=== PATIENT | female | born 1940 | race Caucasian/White ===

== ENCOUNTER 2018-05-03 13:12 | Inpatient (IN) | payer MEDICARE ==
[~2018-05-03] VITALS: Ht 160 cm; Wt 49.9 kg
[2018-05-03 13:30] VITALS: BP 104/61
[2018-05-03] MEDS ORDERED: CALCIUM OYS SH1 EACH PO (13:44)
[2018-05-03] MEDS ORDERED: CENTRUM SILVER1 EAC2 PO (13:44)
[2018-05-03] MEDS ORDERED: LOVASTATIN 20 M20 MG PO (13:44)
[2018-05-03] MEDS ORDERED: POTASSIUM20 PO (13:45)
[2018-05-03] MEDS ORDERED: ELIQUIS2.5 MG PO (13:45)
[2018-05-03] MEDS ORDERED: B12INJ IM (13:46)
[2018-05-03] MEDS ORDERED: PROLIA60 MG/1 ML IM (13:47)
[2018-05-03 16:03] VITALS: BP 106/49
[2018-05-03 19:15] VITALS: BP 101/53
[2018-05-04] VITALS (19 sets, daily range): BP systolic 101–125; BP diastolic 50–70
[2018-05-04 04:47] LABS: HEMATOCRIT 32.2 % (37.0-47.0); HEMOGLOBIN 10.7 gm/dL (12.0-15.0); MCH 32.2 pg (26.0-34.0); MCHC 33.3 g/dL (28.0-37.0); MCV 96.7 fL (80.0-100.0); MPV 7.6 fl. (7.2-11.1); NUCLEATED RBCS 0 /100WBC; PLATELET COUNT* 183 thou/uL (150-400); RBC 3.33 mil/uL (4.20-5.00); WBC 4.4 thou/uL (4.0-11.0)
[2018-05-04 04:55] LABS: CHOLESTEROL 148 mg/dL (<200); HDL CHOLESTEROL 66 mg/dL (>40); LDL CHOLESTEROL 65 mg/dL (<100); TC:HDL 2.2 Ratio (Not establshd); TRIGLYCERIDE 85 mg/dL (<150); VLDL 17 mg/dL (<40)
[2018-05-04 04:57] LABS: SERUM ASSESSMENT CLEAR
[2018-05-04 06:15] LABS: ABSOLUTE EOSINOPHILS 0.4 thou/uL (0.0-0.7); ABSOLUTE LYMPHOCYTES 1.5 thou/uL (0.8-5.3); ABSOLUTE MONOCYTES 0.4 thou/uL (0.0-1.2); ABSOLUTE NEUTROPHILS 2.2 thou/uL (1.6-8.1); PLATELET ESTIMATE ADEQUATE
[2018-05-04 06:16] LABS: ANISOCYTOSIS 1+; POIKILOCYTOSIS 1+
[2018-05-04 09:38] LABS: CALCIUM 9.2 mg/dL (8.5-10.1); CREATININE 2.2 mg/dL (0.6-1.3); POTASSIUM 4.3 mmol/L (3.5-5.1)
[2018-05-04 09:43] LABS: ALBUMIN 2.7 g/dL (3.4-5.0); TOTAL BILIRUBIN 0.4 mg/dL (<0.1-1.0); TOTAL PROTEIN 6.2 g/dL (6.4-8.2)
--- NOTE | 2018-05-04 17:50 | EKG ---
[place] [address] ELECTROCARDIOGRAM REPORT Name: GLADYS TILLMAN Room: [address] ADM IN M.R.#: [id number] Admission: 05/03/18 Attend Phys: Alva Cheung MD Discharge: Date of : 38 Report #: [id number] THIS REPORT FOR: //name// [facility] Test Date: 2018-05-04 Test Time: 12:45:37 Pat Name: GLADYS TILLMAN Department: Room: [address] Gender: F Griddle Attendant: : 1940 Requested By: Henry Santiago Order Number: [id number] Lauren MD: Shan Mckee Measurements Intervals [place] Rate: 89 P: 76 [place]: 188 QRS: 57 QRSD: 75 T: 77 QT: 376 QTc: 458 Interpretive Statements Sinus rhythm Low voltage, precordial leads No previous ECG available for comparison Electronically Signed On 05-04-2018 17:50:32 FORK OPERATOR by Shan Mckee [email or web address] <ELECTRONICALLY SIGNED> By: Shan Mckee MD, [facility] 05/04/18 1750 1245 1245 Shan Mckee MD, FACC /EPI
[2018-05-05] VITALS (7 sets, daily range): BP systolic 110–128; BP diastolic 54–63
[2018-05-05 05:05] LABS: HEMATOCRIT 29.3 % (37.0-47.0); HEMOGLOBIN 10.2 gm/dL (12.0-15.0); MCH 33.6 pg (26.0-34.0); MCHC 34.7 g/dL (28.0-37.0); MCV 96.9 fL (80.0-100.0); MPV 7.4 fl. (7.2-11.1); RBC 3.02 mil/uL (4.20-5.00); RDW-CV 12.9 % (10.5-14.5); WBC 5.8 thou/uL (4.0-11.0)
[2018-05-05 05:25] LABS: ALBUMIN 2.6 g/dL (3.4-5.0); CALCIUM 7.7 mg/dL (8.5-10.1); CREATININE 1.9 mg/dL (0.6-1.3); POTASSIUM 3.6 mmol/L (3.5-5.1); TOTAL BILIRUBIN 0.5 mg/dL (<0.1-1.0); TOTAL PROTEIN 5.7 g/dL (6.4-8.2); TROPONIN-I LEVEL 0.42 ng/mL (<0.06)
[2018-05-05] MEDS ORDERED: NITROGLYCERIN0.4 MG SUBLING (10:20)
[2018-05-05] MEDS ORDERED: BRILINTA90 MG PO (10:21)
[2018-05-05] MEDS ORDERED: ASPIRIN81 M2 PO (10:22)
[2018-05-05 19:12] LABS: GLYCOHEMOGLOBIN (HGB A1C) 6.2 % (4.8-5.6)
--- NOTE | 2018-05-07 15:30 | EKG ---
[place] [address] ELECTROCARDIOGRAM REPORT Name: GLADYS TILLMAN Room: [address] DIS IN M.R.#: [id number] Admission: 05/03/18 Attend Phys: Alva Cheung MD Discharge: 05/05/18 Date of : 38 Report #: [id number] THIS REPORT FOR: //name// [facility] Test Date: 2018-05-05 Test Time: 07:19:56 Pat Name: GLADYS TILLMAN Department: Room: [address] Gender: F Precast Concrete Ironworker: VERONICA : 1940 Requested By: Henry Santiago Order Number: [id number] Reading MD: Shan Mckee Measurements Intervals [place] Rate: 93 P: 77 [place]: 161 QRS: 42 QRSD: 73 T: 75 QT: 374 QTc: 466 Interpretive Statements Sinus rhythm Possible left atrial enlargement Low voltage, extremity and precordial leads Nonspecific T abnrm, anterolateral leads Compared to ECG 05/04/2018 12:45:37 No significant changes Electronically Signed On 05-07-2018 15:30:37 MANAGER GRAPHIC by Shan Mckee [email or web address] <ELECTRONICALLY SIGNED> By: Shan Mckee MD, FACC 05/07/18 1530 0719 0719 Shan Mckee MD, FACC /EPI
--- NOTE | 2018-05-08 14:13 | CARD ---
[address] [address] CARDIAC CATH REPORT Name: GLADYS TILLMAN Room: [address] IN ..#: [id number] Admission: 05/03/18 Attend Phys: Alva Cheung MD Discharge: 05/05/18 Date of : 39 Report #: [id number] THIS REPORT FOR: //name// APPROVED REPORT Study performed: 05/04/2018 10:39:32 Patient Details Patient Status: Room #: 220 The patient is a 77 year-old female Event Personnel Henry Santiago Refinery Superintendent, Jasmina Ibarra RTR Monitor, Laura Todd Scrub, Lizeth Justice RN Horseradish Maker, Eva Wiggins RN Horseradish Maker Procedures Performed Art Access - L femoral artery* Left Heart Cath w/or w/o Coronaries LHC RICARDO Place w/wo Plasty Single RCA Hemostasis w/ Angioseal Indication Non-STEMI Risk Factors Hypercholesterolemia Admission/Lab Medications/Medications given during procedure Aspirin, Platelet Aff. Inhib. Procedure Narrative The patient was brought electively to the Cardiac Catheterization Laboratory and was prepped and draped in a sterile manner. The left femoral was infiltrated with 2% Lidocaine subcutaneous anesthesia. A [place] 6 FR sheath was inserted into the left femoral artery. Coronary angiography was performed using coronary diagnostic catheters. The right coronary system was accessed and visualized with a Diagnostic 6Fr 3DRC catheter. The left coronary system was accessed and visualized with a Diagnostic 6Fr JL4 catheter. The left ventricle was accessed and visualized with a Diagnostic 6Fr straight pigtail catheter. Left ventricular/Aortic Valve gradient assessed via catheter pullback. Closure device was deployed with a Fr Angioseal STS 6Fr. The patient tolerated the procedure well and there were no complications associated with the procedure. [place] [address] CARDIAC CATH REPORT Name: GLADYS TILLMNA Room: [address]#: [id number] Admission: 05/03/18 Attend Phys: Alva Cheung MD Discharge: 05/05/18 Date of : 39 Report #: [id number] Intraoperative Conscious Sedation Sedation start time: 1104 Case end Time: 1203 Fentanyl 50 mcg Versed 1 mg Fluoro Time: 19.6 minutes Dose: DAP 40386 cGycm2 .95 mGy Contrast Type and Amount: Visipaque 160 ml Coronary Angiography The patient's coronary anatomy is right dominant. Diagnostic Cath Left Main 0% narrowing LAD 80% calcified eccentric mid LAD stenosis Circumflex 0% narrrowing Right Coronary dominant vessel with 90% ostial stenosis Left Ventriculography Left Ventriculography was not performed. IVUS Intravascular Ultrasound was performed on the proximal right coronary artery vessel. A Guide Catheter was used to engage the 6F 3DRC ostium. A BMW 190cm was used. Hemodynamics The aortic pressure is 124/62 mmHg with a mean of 87 mmHg. The left ventricular pressure is 123/2 mmHg with a mean of mmHg. The left ventricular end diastolic pressure is 17 mmHg. Pullback from the left ventricle to the aorta revealed no gradient across the aortic valve. PCI Technique Lesion Percutaneous coronary intervention was performed on the proximal right coronary artery. The lesion stenosis prior to intervention was 90% with STEPHANIE 3 flow. A 3DRC 6fr Guide Catheter was used to engage the ostium. A BMW 190cm Interventional Guidewire was used to cross the lesion. BALLOON DILATION A Balloon catheter Trek RX 3.0 X 8 was inserted and inflated up to 12.00atm for 15seconds. Additional Inflation: 6.00atm for 10seconds. Additional Inflation: 10.00atm [place] 16[place]. [place] [address] CARDIAC CATH REPORT Name: GLADYS TILLMAN Room: [address]#: [id number] Admission: 05/03/18 Attend Phys: Alva Cheung MD Discharge: 05/05/18 Date of : 39 Report #: [id number] STENT DEPLOYMENT A drug-eluting stent Xience Maria Del Rosario 3.0X8mm was inserted and inflated up to 10.00atm for 15seconds. Additional Inflation: 14.00atm for 17seconds. Final angiography reveals 0 % stenosis with STPEHANIE 3 flow. COMMENTS complex lesion with aortoostial location PCI Technique Lesion Percutaneous coronary intervention was performed on the proximal right coronary artery. A 6F 3DRC Guide Catheter was used to engage the ostium. A BMW 190cm Interventional Guidewire was used to cross the lesion. STENT DEPLOYMENT A drug-eluting stent Xience Maria Del Rosario 3.0X8mm was inserted and inflated up to 10.00atm for 14seconds. Additional Inflation: 14.00atm for 11seconds. Conclusion 1 coronary artery disease characterized by a) 80% eccentric calcified mid LAD stenosis b) 90% ostial RCA stenosis 2 mild elevation of LV end diastolic pressure 3 succcessful PCI with deployment of a RICARDO at the RCA ostium with 0% residual narrowing and STEPHANIE 3 flow Recommendations Cardiac Risk Reduction Program Aggressive Medical Therapy Medications Administered Aspirin (any) Ticagrelor Diagnostic Cath Approved by: Henry Santiago MD Date/Time: 05/08/2018 14:12:58 <ELECTRONICALLY SIGNED> By: Henry Santiago MD, [facility] 05/08/18 1413 1413 1413Henry Santiago MD, [facility] /INF
== END 2018-05-05 13:08 | disposition home or self-care (01) | DRG 280 ==
LOC: M.2W 13:12
PROVIDERS: Internal Medicine; Nurse Practitioner Family; ADMIT Family Medicine
DX: I21.4 Non-ST elevation (NSTEMI) myocardial infarction (principal); E43 Unspecified severe protein-calorie malnutrition; I50.33 Acute on chronic diastolic (congestive) heart failure; K50.90 Crohn's disease, unspecified, without complications; N18.4 Chronic kidney disease, stage 4 (severe); Z68.1 Body mass index [BMI] 19.9 or less, adult; R06.02 Shortness of breath; E78.5 Hyperlipidemia, unspecified; I48.0 Paroxysmal atrial fibrillation; Z79.01 Long term (current) use of anticoagulants; Z86.718 Personal history of other venous thrombosis and embolism; Z88.8 Allergy status to other drugs, medicaments and biological substances; Z93.2 Ileostomy status; Z90.49 Acquired absence of other specified parts of digestive tract

== ENCOUNTER 2018-06-14 09:49 | Observation (INO) | payer MEDICARE ==
[2018-06-14] VITALS (10 sets, daily range): BP systolic 107–130; BP diastolic 52–73
[~2018-06-14] VITALS: Ht 160 cm; Wt 50.3 kg
--- NOTE | ~2018-06-14 | H ---
[address] [address] HISTORY AND PHYSICAL Name: GLADYS TILLMAN Room: [address] Azalia Osborne#: [id number] Admission: 06/14/18 Attend Phys: Henry Santiago MD, Discharge: 06/15/18 Date of : 39 Report #: [id number] THIS REPORT FOR: //name// Please refer to the History and Physical performed in the physician's office. By: 1521Medical Records Staff GERARD /ALICIA
[~2018-06-14 09:49] MED LIST: ASPIRIN81 M2 PO; B12INJ IM; BRILINTA90 MG PO; CALCIUM 500-VI1 EAC1 PO; CENTRUM SILVER1 EAC2 PO; ELIQUIS2.5 MG PO; LOVASTATIN 20 M20 MG PO; NITROGLYCERIN0.4 MG SUBLING; POTASSIUM20 PO; PROLIA60 MG/1 ML IM
[2018-06-14] MEDS ORDERED: PLAVIX 75 MG TA75 M1 PO (10:07)
[2018-06-14] MEDS ORDERED: TRAMADOL 50 MG50 MG PO (10:07)
[2018-06-14 10:16] LABS: HEMATOCRIT 40.1 % (37.0-47.0); HEMOGLOBIN 13.2 gm/dL (12.0-15.0); MCH 31.8 pg (26.0-34.0); MCHC 32.8 g/dL (28.0-37.0); MCV 97.1 fL (80.0-100.0); RBC 4.13 mil/uL (4.20-5.00); RDW-CV 13.7 % (10.5-14.5); WBC 10.4 thou/uL (4.0-11.0)
[2018-06-14 10:25] LABS: ANION GAP 13 mmol/L (7-16); BUN 37 mg/dL (7-18); CALCIUM 9.9 mg/dL (8.5-10.1); CHLORIDE 99 mmol/L (98-107); CO2 23 mmol/L (21-32); CREATININE 2.2 mg/dL (0.6-1.3); GLUCOSE 129 mg/dL (70-99); POTASSIUM 4.2 mmol/L (3.5-5.1); SODIUM 135 mmol/L (136-145)
[2018-06-14 10:26] LABS: APTT 20.8 Seconds (25.0-31.3); PROTIME 10.6 Seconds (9.20-11.50)
[2018-06-14 10:31] LABS: ALBUMIN 3.2 g/dL (3.4-5.0); ALKALINE PHOSPHATASE 130 U/L (46-116); CHOLESTEROL 120 mg/dL (<200); HDL CHOLESTEROL 41 mg/dL (>40); LDL CHOLESTEROL 43 mg/dL (<100); SGOT 31 U/L (15-37); SGPT 35 U/L (30-65); TC:HDL 2.9 Ratio (Not establshd); TOTAL BILIRUBIN 0.4 mg/dL (<0.1-1.0); TOTAL PROTEIN 7.6 g/dL (6.4-8.2); TRIGLYCERIDE 180 mg/dL (<150); VLDL 36 mg/dL (<40)
[2018-06-14 10:32] LABS: SERUM ASSESSMENT Clear
--- NOTE | 2018-06-14 18:48 | EKG ---
[place] [address] ELECTROCARDIOGRAM REPORT Name: GLADYS TILLMAN Room: [address] M.R.#: [id number] Admission: 06/14/18 Attend Phys: Henry Santiago MD, Discharge: Date of : 39 Report #: [id number] THIS REPORT FOR: //name// [facility] Test Date: 2018-06-14 Test Time: 10:41:10 Pat Name: GLADYS TILLMAN Department: Room: [facility] Gender: F Electric Mule Driver: : 1940 Requested By: Henry Santiago Order Number: [id number] Lauren MD: Shan Mckee Measurements Intervals [place] Rate: 93 P: 73 [place]: 157 QRS: 46 QRSD: 77 T: 71 QT: 350 QTc: 436 Interpretive Statements Sinus rhythm Borderline ST elevation, anterior leads, early repolarization Compared to ECG 05/05/2018 07:19:56 ST (T wave) deviation now present Electronically Signed On 06-14-2018 18:48:31 CODING MACHINE OPERATOR by Shan Mckee [email or web address] <ELECTRONICALLY SIGNED> By: Shan Mckee MD, [facility] 06/14/18 1848 1041 1041 Shan Mckee MD, [facility] /EPI
--- NOTE | 2018-06-14 18:50 | EKG ---
[place] [address] ELECTROCARDIOGRAM REPORT Name: GLADYS TILLMAN Room: [address] M.R.#: [id number] Admission: 06/14/18 Attend Phys: Henry Santiago MD, Discharge: Date of : 38 Report #: [id number] THIS REPORT FOR: //name// [facility] Test Date: 2018-06-14 Test Time: 13:27:11 Pat Name: GLADYS TILLMAN Department: Room: [facility] Gender: F Rn Transitional Care: : 1940 Requested By: Henry Santiago Order Number: [id number] Lauren MD: Shan Mckee Measurements Intervals [place] Rate: 97 P: 78 [place]: 165 QRS: 61 QRSD: 77 T: 73 QT: 349 QTc: 444 Interpretive Statements Sinus rhythm Right atrial enlargement, possible Compared to ECG 05/05/2018 07:19:56 No significant changes Electronically Signed On 06-14-2018 18:50:18 DEPARTMENT ASSISTANT by Shan Mckee [email or web address] <ELECTRONICALLY SIGNED> By: Shan Mckee MD, [facility] 06/14/18 1850 26 26 Shan Mckee MD, FAC /EPI
[2018-06-15] VITALS: BP 93/46
[2018-06-15 04:00] VITALS: BP 105/48
[2018-06-15 05:09] LABS: HEMATOCRIT 30.2 % (37.0-47.0); MCH 32.2 pg (26.0-34.0); MCHC 33.1 g/dL (28.0-37.0); MCV 97.3 fL (80.0-100.0); MPV 6.9 fl. (7.2-11.1); RBC 3.1 mil/uL (4.20-5.00); RDW-CV 13.8 % (10.5-14.5); WBC 15.5 thou/uL (4.0-11.0)
[2018-06-15 05:23] LABS: ALBUMIN 2.3 g/dL (3.4-5.0); CALCIUM 8.9 mg/dL (8.5-10.1); CREATININE 2.2 mg/dL (0.6-1.3); POTASSIUM 4.8 mmol/L (3.5-5.1); TOTAL BILIRUBIN 0.5 mg/dL (<0.1-1.0); TOTAL PROTEIN 5.8 g/dL (6.4-8.2); TROPONIN-I LEVEL 0.19 ng/mL (<0.06)
[2018-06-15 07:30] VITALS: BP 92/48
[2018-06-15 10:18] VITALS: BP 118/61
--- NOTE | 2018-06-15 11:03 | CARD ---
[address] [place] [address] [address] CARDIAC CATH REPORT Name: GLADYS TILLMAN Room: [address] Azalia MJuliane#: [id number] Admission: 06/14/18 Attend Phys: Henry Santiago MD, Discharge: Date of : 39 Report #: [id number] THIS REPORT FOR: //name// APPROVED REPORT Study performed: 06/14/2018 11:09:12 Patient Details Patient Status: Out-Patient Room #: The patient is a 77 year-old female Event Personnel Henry Santiago Snack Foods Mixer Operator, Thania Connell RN Marketing Production Manager, Kenny Mcmanus (R) Monitor, Laura Todd LINING SCRUBBER Monitor, Eva Wiggins RN Marketing Production Manager, Nima Jc Scrub Procedures Performed RICARDO Place w/wo Plasty Single LAD Left Heart Cath w/or w/o Coronaries LHC Hemostasis w/ Angioseal Indication Unstable angina Risk Factors Hypercholesterolemia, Hypertension Previous Procedures/Diagnoses Previous PCI Admission/Lab Medications/Medications given during procedure Aspirin, Platelet Aff. Inhib., Angiomax bolus and infusion Procedure Narrative The patient was brought electively to the Cardiac Catheterization Laboratory and was prepped and draped in a sterile manner. The left femoral was infiltrated with 2% Lidocaine subcutaneous anesthesia. A [place] 6 FR sheath was inserted into the left femoral artery. Coronary angiography was performed using coronary diagnostic catheters. The right coronary system was accessed and visualized with a Diagnostic 6Fr 3DRC catheter. The left coronary system was accessed and visualized with a Diagnostic 6Fr JL4 catheter. The left ventricle was accessed and visualized with a Diagnostic 6Fr straight pigtail catheter. Left ventricular/Aortic Valve gradient assessed via catheter pullback. Pre-demployment femoral angiogram was performed . Closure device was deployed with a 6 Fr Angioseal STS 6[place] [address] CARDIAC CATH REPORT Name: GLADYS TILLMAN Room: [address] M.R.#: [id number] Admission: 06/14/18 Attend Phys: Henry Santiago MD, Discharge: Date of : 38 Report #: [id number] patient tolerated the procedure well and there were no complications associated with the procedure. There was no hematoma. Intraoperative Conscious Sedation Sedation start time: 1137 Case end Time: 1242 Fentanyl 25 mcg Versed 1 mg Dose: 500 mGy Contrast Type and Amount: Visipaque 170 ml Diagnostic Cath Left Main 0% narrowing LAD 80% tubular eccentric calcified proximal mid LAD stenosis Circumflex 0% narrowing Right Coronary Dominant vessel with widely patent ostial proximal stent and 0% narrowing Left Ventriculography Left Ventriculography was not performed. IVUS Intravascular Ultrasound was performed on the proximal right coronary artery vessel. A Guide Catheter was used to engage the 6FR XB 3.0 100CM ostium. A BMW 190cm was used. IVUS Findings NC Trek RX 2.5 X 12 Hemodynamics The aortic pressure is 136/59 mmHg with a mean of 80 mmHg. The left ventricular pressure is 118/-4 mmHg with a mean of mmHg. The left ventricular end diastolic pressure is 8 mmHg. There was no gradient across the aortic valve upon pullback. PCI Technique Lesion Percutaneous coronary intervention was performed on the proximal left anterior descending artery segment. The lesion stenosis prior to intervention was 80% with STEPHANIE 3 flow. A 6FR XB 3.0 100CM Guide Catheter was used to engage the ostium. A BMW 190cm Interventional Guidewire was used to cross the lesion. BALLOON DILATION A Balloon catheter Trek RX 2.5 X 12 was inserted and inflated up to 14.00atm for 18seconds. Additional Inflation: 14.00[place] [address] CARDIAC CATH REPORT Name: GLADYS TILLMAN [address] [id number] Admission: 06/14/18 Attend Phys: Henry Santiago MD, Discharge: Date of : 39 Report #: [id number] 12seconds. STENT DEPLOYMENT A drug-eluting stent Xience Maria Del Rosario 2.5X23mm was inserted and inflated up to 10.00atm for 15seconds. Additional Inflation: 12.00atm for 12seconds. POST STENT DEPLOYMENT BALLOON DILATION A Balloon catheter NC Trek RX 2.5 X 12 was inserted and inflated up to 17.00atm for 13seconds. Additional Inflation: 18.00atm for 11seconds. Additional Inflation: 15.00atm for 10seconds. Final angiography reveals 0 % stenosis with STEPHANIE 3 flow. PCI Technique Lesion Percutaneous coronary intervention was performed on the proximal right coronary artery. A 6FR XB 3.0 100CM Guide Catheter was used to engage the ostium. A BMW 190cm Interventional Guidewire was used to cross the lesion. BALLOON DILATION A Balloon catheter NC Trek RX 2.5 X 12 was inserted and inflated up to 16.00atm for 12seconds. Additional Inflation: 16.00atm for 9seconds. Additional Inflation: 17.00atm for 9seconds. Conclusion #1 significant coronary artery disease characterized by the following: A 80% tubular eccentric calcified proximal mid LAD stenosis B dominant right coronary artery with widely patent ostial proximal stent #2 normal left-sided hemodynamics study #3 successful percutaneous coronary intervention with deployment of drug-eluting stent at site of 80% tubular proximal mid LAD stenosis with 0% residual narrowing and STEPHANIE-3 flow to the distal vessel Recommendations Cardiac Risk Reduction Program Aggressive Medical Therapy Medications Administered Aspirin (any) [place] [address] CARDIAC CATH REPORT Name: GLADYS TILLMAN Room: [address] Azalia Osborne#: [id number] Admission: 06/14/18 Attend Phys: Henry Santiago MD, Discharge: Date of : 38 Report #: [id number] Clopidogrel Diagnostic Cath Approved by: Henry Santiago MD Date/Time: 06/15/2018 11:01:46 <ELECTRONICALLY SIGNED> By: Henry Santiago MD, FACC 06/15/18 1103 1103 1103Jogretchen Santiago MD, FACC /INF
--- NOTE | 2018-06-15 16:38 | EKG ---
[place] [address] ELECTROCARDIOGRAM REPORT Name: GLADYS TILLMAN Room: [address] M.R.#: [id number] Admission: 06/14/18 Attend Phys: Henry Santiago MD, Discharge: 06/15/18 Date of : 38 Report #: [id number] THIS REPORT FOR: //name// [facility] Test Date: 2018-06-15 Test Time: 03:40:27 Pat Name: GLADYS TILLMAN Department: Room: [facility] Gender: F General Office Dispatcher: VERONICA : 1940 Requested By: Henry Santiago Order Number: [id number] Lauren MD: Henry Santiago Measurements Intervals [place] Rate: 100 P: 81 UT: 146 QRS: 59 QRSD: 75 T: 83 QT: 345 QTc: 445 Interpretive Statements Sinus tachycardia Atrial premature complex Low voltage, precordial leads Compared to ECG 06/14/2018 13:27:11 Atrial premature complex(es) now present Low QRS voltage now present Sinus rate has increased Electronically Signed On 06-15-2018 16:38:47 FIRST AID TEACHER by Henry Santiago [email or web address] <ELECTRONICALLY SIGNED> By: Henry Santiago MD, FAC 06/15/18 1638 0340 0340 Henry Santiago MD, [facility] /EPI
--- NOTE | 2018-06-15 16:58 | D ---
[address] [address] DISCHARGE SUMMARY Name: GLADYS TILLMAN Room: [address] Azalia Osborne#: [id number] Admission: 06/14/18 Attend Phys: Henry Santiago MD, Discharge: 06/15/18 Date of : 38 Report #: [id number] THIS REPORT FOR: //name// CC: Henry Maldonado DATE OF SERVICE: 06/15/2018 FINAL DISCHARGE DIAGNOSES: 1. Unstable angina. 2. Coronary artery disease. 3. Status post percutaneous coronary intervention to the left anterior descending and prior percutaneous coronary intervention to the right coronary artery. 4. History of paroxysmal atrial fibrillation. 5. Chronic kidney disease, stage 4. 6. History of Crohn's disease. 7. History of deep vein thrombosis. PROCEDURES: 06/14/2018 - left heart catheterization, selective coronary arteriography and percutaneous coronary intervention to the proximal-mid LAD. HOSPITAL COURSE: The patient is a very pleasant 77-year-old female who presented with unstable angina approximately 1 week ago. She underwent stenting of the ostium of the right coronary artery. Given her renal insufficiency, I recommended a staged procedure to the LAD and she demonstrated 80% eccentric calcified proximal-mid LAD stenosis. She has done reasonably well in the interim with some episodes of exertional chest discomfort. In this context, she was rehospitalized on 06/14/2018 and underwent recatheterization, which revealed a widely patent ostial proximal right coronary stent with a persistent 80% calcified eccentric proximal-mid LAD stenosis. I placed one 2.5 x 23 mm Xience Maria Del Rosario drug-eluting stent in the proximal-mid LAD with a good angiographic result and 0% residual narrowing. She did well post-procedural without symptoms suggesting recurrent angina. Troponin cindy inconsequentially to 0.19 units. She ambulated in the hallways without difficulty with good hemostasis at the right femoral site of catheterization. Laboratory on 06/15/2018 revealed a sodium of 134, potassium 4.8, BUN 32 (37 preprocedurally), creatinine 2.2 (2.2 preprocedurally), glucose 104 mg percent. Hemoglobin 10.0, white blood cell count 15,500 with 250,000 platelets. The patient ambulated in [place] [address] DISCHARGE SUMMARY Name: GLADYS TILLMAN Room: [address] Azalia Osborne#: [id number] Admission: 06/14/18 Attend Phys: Henry Santiago MD, Discharge: 06/15/18 Date of : 38 Report #: [id number] DISCHARGE MEDICATIONS: She was discharged to home on the following medications: Aspirin enteric coated 81 mg daily, calcium carbonate/vitamin D one tablet daily, clopidogrel or Plavix 75 mg daily with 600 mg radha-procedural dose, Prolia 60 mg intramuscularly as directed, lovastatin 20 mg at bedtime, multivitamin with minerals, Centrum Silver 1 tablet daily, potassium chloride 20 mEq daily and vitamin B12 1000 mcg weekly. She is scheduled to return to see me on 08/08/2018 at 13:00 and to call if there are interim difficulties. Thus, the patient is discharged to home in stable condition on the aforementioned medications with followup as iterated above. <ELECTRONICALLY SIGNED> By: Henry Santiago MD, FACC 06/15/18 1658 1601 1625Jogretchen Santiago MD, FACC /nt
== END 2018-06-15 13:44 | disposition home or self-care (01) ==
LOC: M.CL 09:49 → M.TBA-CV 12:58 → M.2W 17:28
PROVIDERS: ADMIT Internal Medicine
DX: I25.110 Atherosclerotic heart disease of native coronary artery with unstable angina pectoris (principal); I48.91 Unspecified atrial fibrillation; I12.9 Hypertensive chronic kidney disease with stage 1 through stage 4 chronic kidney disease, or unspecified chronic kidney disease; N18.4 Chronic kidney disease, stage 4 (severe); K50.818 Crohn's disease of both small and large intestine with other complication; Z86.718 Personal history of other venous thrombosis and embolism